=== PATIENT | female | born 1950 | race Caucasian/White ===

== ENCOUNTER 2023-03-01 07:24 | Emergency (ER) | payer MEDICARE ==
[~2023-03-01] VITALS: Ht 160 cm; Wt 88.0 kg
[2023-03-01 07:29] VITALS: TEMP 97.9
[2023-03-01] MEDS ORDERED: normal saline 1000ml 1,000 ML IV ONE (07:45)
[2023-03-01] MEDS ORDERED: LORazepam 2 mg/ml vial IV ONE ×2 (07:45→11:35)
[2023-03-01 08:25] LABS: BASOPHILS # (AUTO) 0.1 X10'3 (0-0.2); BASOPHILS % (AUTO) 0.8 % (0-1); EOSINOPHILS % (AUTO) 0.3 % (0-6); HEMATOCRIT 41.5 % (35.0-45.0); HEMOGLOBIN 14.1 g/dl (12.0-16.0); LYMPHOCYTES # (AUTO) 0.8 X10'3 (1.1-4.8); LYMPHOCYTES % (AUTO) 10.9 % (21-51); MEAN CORPUSCULAR HGB CONC 34.1 g/dL (33.0-36.5); MEAN CORPUSCULAR VOLUME 93.9 FL (78-98); MEAN PLATELET VOLUME 6.9 FL (7.4-10.4); MONOCYTES # (AUTO) 0.7 X10'3 (0-0.9); MONOCYTES % (AUTO) 9.9 % (2-12); NEUTROPHILS # (AUTO) 5.4 X10'3 (1.8-7.7); NEUTROPHILS % (AUTO) 78.1 % (42-75); PLATELET COUNT 319 X10'3 (140-440); RED BLOOD COUNT 4.42 X10'6 (4.20-5.60); RED CELL DISTRIBUTION WIDTH 15.7 % (11.5-14.5); WHITE BLOOD COUNT 6.9 X10'3 (4.5-11.0)
[2023-03-01 08:43] LABS: ALANINE AMINOTRANSFERASE 19 U/L (12-78); ALBUMIN 3.5 G/DL (3.4-5.0); ALBUMIN/GLOBULIN RATIO 1.2 (1.1-1.5); ALKALINE PHOSPHATASE 83 IU/L (46-116); ANION GAP 6 (8-16); ASPARTATE AMINO TRANSFERASE 23 U/L (10-37); BILIRUBIN,TOTAL 0.9 MG/DL (0.1-1.0); BLOOD UREA NITROGEN 7 MG/DL (7-18); BUN/CREATININE RATIO 7.7 (10.0-20.0); CALCIUM 8.8 MG/DL (8.5-10.1); CHLORIDE 97 MMOL/L (99-107); CREATININE 0.91 MG/DL (0.40-0.90); GLUCOSE 120 MG/DL (70-104); POTASSIUM 3.7 MMOL/L (3.5-5.1); SODIUM 133 MMOL/L (135-145); TOTAL CARBON DIOXIDE 29.6 MMOL/L (24-32); TOTAL PROTEIN 6.4 G/DL (6.4-8.2); eCRCL 46 ML/MIN; eGFR 61 ML/MIN
[2023-03-01 08:53] LABS: MAGNESIUM 1.6 MG/DL (1.5-2.4); PRO BRAIN NATRIURETIC PEPTIDE 1001 PG/ML (0-125)
--- NOTE | 2023-03-01 09:00 | NUR ---
PT REPORTS THAT THE ATIVAN GIVEN HAS MADE HER JITTERY AND ANXIOUS, WAS MADE AWARE. AWAITING NEW ORDERS
[2023-03-01 10:49] LABS: FREE T4 (FREE THYROXINE) 1.15 NG/DL (0.73-1.40); THYROID STIMULATING HORMONE 3.09 ulU/ml (0.34-4.50)
--- NOTE | 2023-03-01 13:22 | NUR ---
PT IS ABLE TO AMBULATE 50FT WITH THE AID OF A CANE, 98% ON RA
[2023-03-01 13:50] VITALS: BP 136/83; PULSE 73; RESP 18; O2SAT 97
== END 2023-03-01 14:43 | disposition home or self-care (01) ==
LOC: ER 07:25
DX: R06.02 Shortness of breath (principal); T50.995A Adverse effect of other drugs, medicaments and biological substances, initial encounter; Y92.89 Other specified places as the place of occurrence of the external cause
CPT/HCPCS: 36415; 71045; 80053; 83735; 83880; 84439; 84443; 84484; 85025; 93005; 96374; 96376; 99285; J2060; J7030